=== PATIENT | male | born 1955 | race Two or more races ===

== ENCOUNTER 2022-07-29 06:20 | Inpatient (IN) | payer BC, MEDICARE ==
[2022-07-25 09:02] LABS: Basophils # (auto) 0.1 10 ^3/uL (0-0.2); Basophils % (auto) 1.3 % (0.0-2.0); Eosinophils # (auto) 0.4 10 ^3/uL (0-0.8); Hematocrit 47.2 % (41.0-53.0); Hemoglobin 16.4 g/dL (13.5-17.5); Lymphocytes # (auto) 1.5 10 ^3/uL (0.4-5.4); Lymphocytes % (auto) 23.2 % (10.0-50.0); Mean Corpuscular Hemoglobin 33.1 pg (28.0-32.0); Mean Corpuscular Hgb Conc. 34.8 g/dL (32.0-36.0); Mean Corpuscular Volume 95.2 fL (80.0-100.0); Monocytes # (auto) 0.9 10 ^3/uL (0-1.3); Neutrophils # (auto) 3.6 10 ^3/uL (1.6-8.6); Neutrophils % (auto) 55.5 % (37.0-80.0); Nucleated Red Blood Cells % 0.2 %; Red Blood Cells 4.95 10^6/uL (4.5-5.90); Red Cell Distribution Width 12.8 % (11.8-14.3); White Blood Cell 6.4 10^3/uL (4.4-10.8)
[2022-07-25 09:14] LABS: Urine Bacteria NONE SEEN /hpf (None Seen); Urine Blood Negative /uL (Negative); Urine Specific Gravity 1.003 (1.001-1.035); Urine WBC <1 /hpf (0 - 3)
[2022-07-25 09:17] LABS: INR 1.05 (0.9-1.15); Partial Thromboplastin Time 30.7 sec (24.6-33.4)
[2022-07-25 09:45] LABS: Calcium 8.9 mg/dL (8.5-10.1); Potassium 4.3 mmol/L (3.5-5.1)
[2022-07-25 09:50] LABS: BUN/Creatinine Ratio 6.2 (10.0-20.0); Bilirubin, Total 1.3 mg/dL (0.2-1.0); Total Protein 8.1 g/dL (6.4-8.2)
[2022-07-29] VITALS (12 sets, daily range): BP systolic 105–126; BP diastolic 70–86
[~2022-07-29] VITALS: Ht 188 cm; Wt 128.9 kg
[~2022-07-29 06:20] MED LIST: ACET-6 PO; ACET300T51 PO; HYDR25CA PO; MELO-335 PO; SAW500CA9 PO; [UNRECOGNIZED DRUG - CODE] PO
[2022-07-29] MEDS ORDERED: ACETAMINOPHEN IV 100 ML IV ONE (06:57)
[2022-07-29] MEDS ORDERED: ceFAZolin 1GM/50ML 100 ML IV ONE (06:57)
[2022-07-29] MEDS ORDERED: TRANEXAMIC ACID 20 ML ONE (06:59)
[2022-07-29] MEDS ORDERED: ceFAZolin 1GM VL ONE (06:59)
[2022-07-29] MEDS ORDERED: BUPIVACAINE W/ EPINEPH 0.25% INJ 50ML MDV ONE (06:59)
[2022-07-29] MEDS ORDERED: PREGABALIN CAPSULE 75 MG CAP PO ONE (07:00)
[2022-07-29] MEDS ORDERED: CELECOXIB 100 MG CAP PO ONE (07:00)
[2022-07-29] MEDS ORDERED: ACETAMINOPHEN IV 1000 MG/100ML (10MG/ML) IV ONE (07:00)
[2022-07-29] MEDS ORDERED: KETOROLAC TROMETH 30 MG/ML 1ML VIAL ONE (07:02)
[2022-07-29] MEDS ORDERED: MORPHINE SULF PF 5 MG/10 ML VIAL ONE ×2 (07:04→07:32)
[2022-07-29] MEDS ORDERED: TETRACAINE 1% INJ 2 ML VIAL IJ ONE (07:29)
[2022-07-29] MEDS ORDERED: fentaNYL CITRATE 100 MCG/2 ML VL ONE (07:32)
[2022-07-29] MEDS ORDERED: MIDAZOLAM HCL 2MG/2ML 2ml VIAL (1mg/ml) ONE ×3 (07:32→09:45)
[2022-07-29] MEDS ORDERED: PROPOFOL 10 MG/ML 20 ML IV ONE (07:47)
[2022-07-29] MEDS ORDERED: DexAMETHasone SOD PHOS 10MG/1ML VIAL INJ ONE (07:47)
[2022-07-29] MEDS ORDERED: NALOXONE HCL 0.4 MG/ML VIAL IV PRN (08:15)
[2022-07-29] MEDS ORDERED: ONDANSETRON HCL 4 MG/2 ML VIAL IV PRN ×3 (08:15→10:45)
[2022-07-29] MEDS ORDERED: LABETALOL HCL 5 MG/ML 4ML SYRINGE IV PRN (08:15)
[2022-07-29] MEDS ORDERED: DexAMETHasone SOD PHOS 10MG/1ML VIAL INJ IV PRN (08:15)
[2022-07-29] MEDS ORDERED: MIDAZOLAM HCL 2MG/2ML 2ml VIAL (1mg/ml) IV PRN (08:15)
[2022-07-29] MEDS ORDERED: ePHEDrine SULFATE 50 MG/ML AMP IV PRN (08:15)
[2022-07-29] MEDS ORDERED: HYDROmorphone HCL 2 MG/ML VL/or syr IV PRN ×2 (08:15→10:45)
[2022-07-29] MEDS ORDERED: diphenhdrAMINE HCL 50 MG/1 ML VL IV PRN (08:15)
[2022-07-29] MEDS ORDERED: VANCOMYCIN HCL 1000 MG VL ONE (09:56)
[2022-07-29] MEDS ORDERED: NITROGLYCERIN 0.4 MG SL TAB SL PRN (10:45)
[2022-07-29] MEDS ORDERED: MORPHINE SULFATE INJ 2 MG/ml SYRG IV PRN (10:45)
[2022-07-29] MEDS ORDERED: OXYCODONE W/ ACETAMINOPHEN 5/325MG TABLET PO PRN (10:45)
[2022-07-29] MEDS ORDERED: ceFAZolin 1GM/50ML 50 ML IV SCH (10:45)
[2022-07-29] MEDS: ceFAZolin 1GM/50ML 50 ML IV SCH ×2 (14:01→22:55)
[2022-07-29] MEDS ORDERED: HYDR1TAB97 PO (16:24)
[2022-07-29] MEDS: LACTATED RINGER'S 1,000 ML IV SCH ×2 (17:31→20:45)
[2022-07-29] MEDS: DOCUSATE SOD 100 MG CAP PO SCH (22:55)
[2022-07-29] MEDS: hydrOXYzine 25 MG TAB or CAP PO SCH (22:56)
[2022-07-30] VITALS (14 sets, daily range): BP systolic 98–123; BP diastolic 46–71
[2022-07-30] MEDS: ceFAZolin 1GM/50ML 50 ML IV SCH (03:24)
[2022-07-30 06:28] LABS: Basophils # (auto) 0.1 10 ^3/uL (0-0.2); Basophils % (auto) 0.8 % (0.0-2.0); Eosinophils # (auto) 0 10 ^3/uL (0-0.8); Hematocrit 33.9 % (41.0-53.0); Hemoglobin 11.9 g/dL (13.5-17.5); Lymphocytes # (auto) 0.3 10 ^3/uL (0.4-5.4); Lymphocytes % (auto) 5.2 % (10.0-50.0); Mean Corpuscular Hemoglobin 33.2 pg (28.0-32.0); Monocytes # (auto) 0.4 10 ^3/uL (0-1.3); Neutrophils # (auto) 5.6 10 ^3/uL (1.6-8.6); Nucleated Red Blood Cells % 0.1 %; Red Blood Cells 3.57 10^6/uL (4.5-5.90); Red Cell Distribution Width 12.5 % (11.8-14.3); White Blood Cell 6.4 10^3/uL (4.4-10.8)
[2022-07-30 06:46] LABS: BUN/Creatinine Ratio 7.2 (10.0-20.0); Calcium 7.8 mg/dL (8.5-10.1); Potassium 4.1 mmol/L (3.5-5.1)
[2022-07-30] MEDS: DOCUSATE SOD 100 MG CAP PO SCH ×2 (08:57→21:31)
[2022-07-30] MEDS: hydrOXYzine 25 MG TAB or CAP PO SCH ×2 (08:57→21:31)
[2022-07-30] MEDS: ENOXAPARIN SOD 40 MG/0.4 ML SYRINGE SC SCH (08:57)
[2022-07-30] MEDS: LACTATED RINGER'S 1,000 ML IV SCH (09:16)
[2022-07-30] MEDS: HYDROmorphone HCL 2 MG/ML VL/or syr IV PRN ×2 (09:16→13:31)
[2022-07-31] MEDS: HYDROmorphone HCL 2 MG/ML VL/or syr IV PRN ×2 (02:01→10:46)
[2022-07-31 05:00] VITALS: BP 108/62
[2022-07-31 06:33] LABS: Calcium 7.8 mg/dL (8.5-10.1); Potassium 3.5 mmol/L (3.5-5.1)
[2022-07-31 06:38] LABS: Albumin 2.7 g/dL (3.4-5.0); BUN/Creatinine Ratio 8.6 (10.0-20.0); Bilirubin, Total 0.9 mg/dL (0.2-1.0); Total Protein 5.9 g/dL (6.4-8.2)
[2022-07-31 06:54] LABS: Basophils # (auto) 0.1 10 ^3/uL (0-0.2); Eosinophils # (auto) 0 10 ^3/uL (0-0.8); Eosinophils % (auto) 0.2 % (0.0-7.0); Hematocrit 35.4 % (41.0-53.0); Hemoglobin 12.3 g/dL (13.5-17.5); Lymphocytes % (auto) 16.7 % (10.0-50.0); Mean Corpuscular Hemoglobin 33.1 pg (28.0-32.0); Mean Corpuscular Hgb Conc. 34.9 g/dL (32.0-36.0); Mean Corpuscular Volume 94.9 fL (80.0-100.0); Neutrophils # (auto) 3.7 10 ^3/uL (1.6-8.6); Neutrophils % (auto) 65.1 % (37.0-80.0); Nucleated Red Blood Cells % 0.1 %; Red Blood Cells 3.73 10^6/uL (4.5-5.90); Red Cell Distribution Width 12.7 % (11.8-14.3); White Blood Cell 5.7 10^3/uL (4.4-10.8)
[2022-07-31 07:30] VITALS: BP 139/71
[2022-07-31 09:00] VITALS: BP 139/71
[2022-07-31] MEDS: LORazepam 2MG/ML-1ML VIAL IV ONE ×2 (10:30→12:41)
[2022-07-31] MEDS: DOCUSATE SOD 100 MG CAP PO SCH (10:46)
[2022-07-31] MEDS: ENOXAPARIN SOD 40 MG/0.4 ML SYRINGE SC SCH (10:46)
[2022-07-31] MEDS: hydrOXYzine 25 MG TAB or CAP PO SCH (11:12)
[2022-07-31 13:00] VITALS: BP 133/76
[2022-07-31 13:02] VITALS: BP 139/71
[2022-07-31 16:47] VITALS: BP 103/64
== END 2022-07-31 16:30 | disposition home or self-care (01) | DRG 470 ==
LOC: SUR 06:20 → TELE 10:41 → TELE-CENTR 15:20 → CENTRAL 07-30 10:48
PROVIDERS: ADMIT Radiology Vascular & Interventional Radiology; ATTEND Internal Medicine
PROC: 0SR90JA Replacement of Right Hip Joint with Synthetic Substitute, Uncemented, Open Approach (ICD-10-PCS; principal; 2022-07-29 07:38)
DX: M16.11 Unilateral primary osteoarthritis, right hip (principal); E66.9 Obesity, unspecified; F10.10 Alcohol abuse, uncomplicated; K76.0 Fatty (change of) liver, not elsewhere classified; Y90.9 Presence of alcohol in blood, level not specified; D69.6 Thrombocytopenia, unspecified; Z68.36 Body mass index [BMI] 36.0-36.9, adult
CPT/HCPCS: 36415; 72170; 73501; 76705; 80048; 80053; 81001; 85025; 85610; 85730; 86850; 86900; 86901; 97110; 97116; 97163; 97530; G0378; J0131; J0690; J1100; J1885; J2250; J2704

== ENCOUNTER 2023-07-22 06:20 | Day surgery (SDC) | payer BC, MEDICARE ==
[2023-07-16 14:25] LABS: Urine Bacteria None Seen /hpf (None Seen)
[2023-07-16 14:35] LABS: Basophils # (auto) 0.1 10 ^3/uL (0-0.2); Basophils % (auto) 0.9 % (0.0-2.0); Eosinophils # (auto) 0.3 10 ^3/uL (0-0.8); Eosinophils % (auto) 3.6 % (0.0-7.0); Hematocrit 45.5 % (41.0-53.0); Hemoglobin 14.9 g/dL (13.5-17.5); Lymphocytes # (auto) 1.9 10 ^3/uL (0.4-5.4); Lymphocytes % (auto) 23.1 % (10.0-50.0); Mean Corpuscular Hemoglobin 27.9 pg (28.0-32.0); Mean Corpuscular Hgb Conc. 32.7 g/dL (32.0-36.0); Mean Corpuscular Volume 85.3 fL (80.0-100.0); Monocytes % (auto) 11.6 % (0.0-12.0); Neutrophils # (auto) 5.1 10 ^3/uL (1.6-8.6); Neutrophils % (auto) 60.8 % (37.0-80.0); Nucleated Red Blood Cells % 0.1 %; Red Blood Cells 5.34 10^6/uL (4.5-5.90); Red Cell Distribution Width 16.6 % (11.8-14.3); White Blood Cell 8.4 10^3/uL (4.4-10.8)
[2023-07-16 14:37] LABS: Urine Blood Negative /uL (Negative); Urine Clarity Clear (Clear); Urine Color Light-Yellow (Yellow); Urine Protein, UAD Negative (Negative); Urine Specific Gravity 1.005 (1.001-1.035); Urine Urobilinogen Normal (Negative); Urine WBC <1 /hpf (0 - 3); Urine pH 6.5 (5.0-9.0)
[2023-07-16 15:01] LABS: INR 1.08 (0.9-1.15); Partial Thromboplastin Time 30.1 SEC (24.5-34.5); Prothrombin Time 11.4 sec (9.3-11.8)
[2023-07-16 15:17] LABS: Alanine Aminotransferase 22 U/L (7-40); Albumin 4.4 g/dL (3.2-4.8); Alkaline Phosphatase 95 U/L (46-116); Anion Gap 6 (5-15); Aspartate Aminotransferase 28 U/L (13-40); Bilirubin, Total 0.7 mg/dL (0.2-1.0); Calcium 9.3 mg/dL (8.5-10.1); Carbon Dioxide 28 mmol/L (20-30); Chloride 104 mmol/L (98-107); Glucose 100 mg/dL (74-106); Sodium 138 mmol/L (136-145); Total Protein 7.7 g/dL (5.7-8.2)
[2023-07-16 15:19] LABS: BUN/Creatinine Ratio 5.5 (10.0-20.0); Blood Urea Nitrogen < 5 mg/dL (9-23)
[~2023-07-22] VITALS: Ht 188 cm; Wt 124.7 kg
[~2023-07-22 06:20] MED LIST changes: +HYDR1TAB97 PO; -MELO-335 PO; +MELO15TA29 PO
[2023-07-22] MEDS ORDERED: TOBRAMYCIN PER PHARMACY 0 ML IV SCH (07:00)
[2023-07-22] MEDS ORDERED: ceFAZolin 2 GM/D5W50ml 50 ML IV ONE (07:03)
[2023-07-22] MEDS ORDERED: fentaNYL CITRATE 100 MCG/2 ML VL ONE (07:05)
[2023-07-22] MEDS ORDERED: PROPOFOL 10 MG/ML 20 ML IV ONE (07:05)
[2023-07-22] MEDS ORDERED: GENTAMICIN SULFATE 2 ML ONE (07:06)
[2023-07-22] MEDS ORDERED: BUPIVACAINE 0.25% INJ 50ML VIAL ONE (07:13)
[2023-07-22] MEDS ORDERED: TOBRAMYCIN IV ONE (07:15)
[2023-07-22] MEDS ORDERED: TOBRAMYCIN PER PHARMACY IV ONE (07:15)
[2023-07-22] MEDS ORDERED: GENTAMICIN SULFATE 4 ML ONE (07:19)
[2023-07-22] MEDS ORDERED: BUPIVACAINE W/ EPINEPH 0.5% INJ 50ML MDV IJ ONE (07:20)
[2023-07-22] MEDS ORDERED: TRANEXAMIC ACID 0 ML ONE (07:20)
[2023-07-22] MEDS ORDERED: VANCOMYCIN HCL 1000 MG VL ONE ×2 (07:23→08:01)
[2023-07-22] MEDS ORDERED: ONDANSETRON HCL 4 MG/2 ML VIAL ONE (07:37)
[2023-07-22] MEDS ORDERED: DexAMETHasone SOD PHOS 10MG/1ML VIAL INJ ONE (07:37)
[2023-07-22] MEDS ORDERED: MEPERIDINE HCL (50 MG/ML) 1 ML VIAL ONE ×2 (07:37→07:51)
[2023-07-22 08:30] VITALS: TEMP 98.3; O2SAT 96
[2023-07-22] MEDS ORDERED: HYDROmorphone HCL 2 MG/ML VL/or syr ONE (08:41)
[2023-07-22] MEDS ORDERED: MEPERIDINE HCL (25 MG/ML) 1ML VIAL IV PRN (08:45)
[2023-07-22] MEDS ORDERED: ONDANSETRON HCL 4 MG/2 ML VIAL IV ONE (08:45)
[2023-07-22] MEDS: HYDROmorphone HCL 2 MG/ML VL/or syr IV PRN (08:45)
[2023-07-22 09:15] VITALS: BP 106/68; PULSE 71; RESP 12; O2SAT 94
== END 2023-07-22 09:24 | disposition home or self-care (01) ==
LOC: SUR 06:20
PROVIDERS: ATTEND Orthopaedic Surgery Adult Reconstructive Orthopaedic Surgery
DX: L02.415 Cutaneous abscess of right lower limb (principal); Z96.641 Presence of right artificial hip joint; E66.9 Obesity, unspecified; Z68.35 Body mass index [BMI] 35.0-35.9, adult; Z87.891 Personal history of nicotine dependence
CPT/HCPCS: 10180; 11981; 36415; 80053; 81001; 85025; 85610; 85730; 87070; 87075; 87077; 87186; 87205; C1713; J0690; J1100; J1170; J1580; J2175; J2405; J2704; J3010; J3260; J3370; J3490